=== PATIENT | male | born 1990 | race Caucasian/White ===

== ENCOUNTER 2019-04-28 10:55 | Emergency (ER) | payer OTHER ==
[~2019-04-28] VITALS: Ht 182.9 cm; Wt 107.0 kg
[2019-04-28 11:00] VITALS: Ht 182.9 cm; Wt 107.0 kg
[2019-04-28 13:42] LABS: BASOPHIL % 0.3 % (0-2); PLATELET COUNT 183 x10^3mcL (130-400); RED CELL DISTRIBUTION WIDTH 13.6 % (11.5-14.5)
[2019-04-28 14:01] LABS: CALCIUM 9.3 mg/dL (8.5-10.1); CARBON DIOXIDE 28.4 mmol/L (21-32); CHLORIDE SERUM 105 mmol/L (98-107); CREATININE SERUM 0.8 mg/dL (0.7-1.3); GFR1 > 60 mL/min; GLUCOSE SERUM 96 mg/dL (74-106); POTASSIUM SERUM 4.7 mmol/L (3.5-5.1); SODIUM SERUM 143 mmol/L (136-145)
[2019-04-28 14:06] LABS: ALKALINE PHOSPHATASE 91 U/L (46-116); ALT/SGPT 20 U/L (16-63); AST/SGOT 13 U/L (15-37); BILIRUBIN TOTAL 0.69 mg/dL (0.20-1.00); LIPASE 72 IU/L (73-393); TOTAL PROTEIN, SERUM 7.7 g/dL (6.4-8.2)
[2019-04-28 16:27] VITALS: BP 111/68
== END 2019-04-28 16:27 | disposition home or self-care (01) ==
LOC: ED 10:55
PROVIDERS: Emergency Medicine
DX: R07.89 Other chest pain (principal); R42 Dizziness and giddiness; H57.11 Ocular pain, right eye; R11.10 Vomiting, unspecified; R00.2 Palpitations; F17.210 Nicotine dependence, cigarettes, uncomplicated
CPT/HCPCS: 36415